=== PATIENT | female | born 1965 | race Caucasian/White ===

== ENCOUNTER 2017-06-21 22:47 | Emergency (ER) | payer SELFPAY ==
[~2017-06-21] VITALS: Ht 162.6 cm; Wt 63.5 kg
--- NOTE | 2017-06-21 22:47 | NUR ---
BIBRA FOR ETOH; BS 122. NO SOB AT THIS TIME BUT LOW 02 SATURATION OF 92%. UNDER THE INFLUENCE OF ALCOHOL CURRENTLY AND UNABLE TO GIVE ANY ANY INFORMATION. WILL CONTINUE TO MONITOR FOR ANY CHANGES. VSS NAD
[2017-06-21] MEDS ORDERED: ONDANSETRON HCL/PF 4 MG/2 ML VIAL ONE (22:57)
[2017-06-21] MEDS ORDERED: IV NS 0.9% 1,000 ML BAG IV ONE (23:00)
[2017-06-21] MEDS ORDERED: ONDANSETRON HCL/PF 4 MG/2 ML VIAL IVP ONE (23:00)
[2017-06-22 06:34] VITALS: BP 102/72
== END 2017-06-22 06:35 | disposition home or self-care (01) ==
LOC: ER 22:48
DX: F10.129 Alcohol abuse with intoxication, unspecified (principal)
CPT/HCPCS: 36415; 82962; 96361; 96374; 99284; A4606; G0480; J2405; Z7610